=== PATIENT | male | born 1985 | race Caucasian/White ===

== ENCOUNTER 2022-03-25 10:54 | Emergency (ER) | payer MEDICAID, SELFPAY ==
[2022-03-25 11:01] VITALS: BP 131/86; PULSE 50; RESP 16; TEMP 36.7; O2SAT 100; BMI 26.4
[2022-03-25 11:25] VITALS: BP 131/86; PULSE 50; RESP 16; O2SAT 100
--- NOTE | 2022-03-25 11:38 | CT_ITS ---
WS: [id number] CT HEAD TECHNIQUE: Noncontrast CT of the head obtained from the skullbase to the vertex. CLINICAL INFORMATION: pressure, confusion COMPARISON: None. DLP: 873.[address] scans at [facility] use at least one of these dose optimization techniques: automated e xposure control; mA and/or kV adjustment per patient size (includes targeted exams where dose is matc hed to clinical indication); or iterative reconstruction. FINDINGS: No evidence of intracranial hemorrhage or mass effect. Ventricular system and basal cisterns are payne nt No extra-axial fluid collections. No evidence of mass or mass effect. Normal darden-white differenti ation. Paranasal sinuses and mastoid air cells are well aerated. .Normal visualized soft tissues. CT/CT head wo con* [id number] IMPRESSION: 1. No evidence of intracranial hemorrhage or mass effect. 2. Normal darden-white differentiation. 3. No acute intracranial findings.
--- NOTE | 2022-03-25 11:39 | XRR_ITS ---
PROCEDURE INFORMATION: Exam: XR Chest Exam date and time: 03/25/2022 11:52 AM Age: 36 years old Clinical indication: Pain; Angina pectoris; Additional info: Chest pain TECHNIQUE: Imaging protocol: XR of the chest. Views: 1 view. COMPARISON: No relevant prior studies available. FINDINGS: Lungs: No focal airspace disease. Pleural spaces: Unremarkable. No pleural effusion. No pneumothorax. Heart/Mediastinum: Cardiomediastinal silhouette is within normal limits. Bones/joints: Unremarkable. XR/XR chest 1V portable [id number] IMPRESSION: No acute cardiopulmonary abnormality.
--- NOTE | 2022-03-25 11:40 | ECG_ITS ---
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 Measurements Intervals [place] Rate: 46 P: 30 NV: 130 QRS: 44 QRSD: 109 T: 50 QT: 467 QTc: 409 Interpretive Statements SINUS BRADYCARDIA No previous ECG available for comparison Electronically Signed On 03-25-2022 17:36:44 CDT by Padmaja Matthews M.D. [id number]
--- NOTE | 2022-03-25 11:40 | W.ED.GENADLT ---
HPI - General Adult General: Chief complaint: Headache Stated complaint: head Pressure, Confusion Time Seen by Provider: 03/25/22 11:19 Source: patient Mode of arrival: ambulatory Limitations: no limitations History of Present Illness: Patient is a 36-year-old male who presents to ED today with a complaint of intermittent head pressure and feelings of confusion/slowing. He states symptoms of been intermittent over the past 4 days. He denies previous symptoms or episodes. He is not complaining of head pain but just feels a global sense of pressure. He states symptoms seem to be worse in the evenings. He is not having any visual changes. No neurologic deficits. He does not complain of sinus pain/pressure or discharge. No history of allergies. No injury or trauma to his head. He states he checked his blood pressure yesterday secondary to symptoms and states his systolic was 150s. Patient does not complain of shortness of breath or difficulty breathing. He does not have any chest pain. He does state yesterday he felt like I could hear my heart beating but states he checked his pulse and it was in the 60s. Patient does tell me he takes several athletic supplements but recently discontinued them to see if this would help with symptoms. Onset (ago): day(s) Pain Consistency: intermittent Relieving factors: none Exacerbating factors: none Associated symptoms: Reports headache(s) (head pressure); Deny chest pain, dyspnea, malaise, nausea, syncope or vomiting Treatments prior to arrival: none Review of Systems Const: Denies: fever(s), chills, body aches, change in appetite, change in weight, fatigue or malaise Eyes: Denies: change in vision or blurry vision Card: Denies: chest pain, irregular heart rhythm, edema, swelling of feet/ankles, syncope, pre-syncope, dyspnea on exertion, orthopnea, leg pain with exertion or acrocyanosis Resp: Denies: dyspnea GI: Denies: abdominal pain, nausea, vomiting or diarrhea Musc: Denies: neck pain, back pain, extremity pain or joint pain Neuro: Reports: headache(s) (head pressure); Denies: numbness in extremities, weakness in extremities, sensory changes, frequent falls, vertigo, Slurred speech present, seizure-like activity or involuntary movements Physical Exam Const: COMMON NORMALS: no acute distress, average body habitus, patient oriented x3, no limitations, healthy appearing, alert and well nourished ORIENTATION/CONSCIOUSNESS: Yes awake, Yes oriented to person, Yes oriented to place and Yes oriented to time HENMT: COMMON NORMALS: normocephalic, atraumatic and EAC's normal HEAD & SCALP: normocephalic and atraumatic FACE & SINUS: normal facial exam and sinuses nontender EXTERNAL AUDITORY CANAL: EAC's normal Eye: GENERAL EYE: appearance normal, both eyes and all related structures Neck/C-Spine: COMMON NORMALS: full ROM, no lymphadenopathy and no meningeal signs Resp: COMMON NORMALS: normal respiratory effort and clear to auscultation bilaterally AUSCULTATION: clear to auscultation bilaterally Cardio: COMMON NORMALS: regular rhythm RATE: bradycardic RHYTHM: regular rhythm Extremity: COMMON NORMALS: normal to inspection, capillary refill normal, no clubbing, cyanosis or edema, no calf tenderness and no pedal edema GENERAL: Yes normal exam except as noted Neuro: EDUARDO COMA SCALE: document GCS findings Caldwell coma scale eye opening: Spontaneous Eduardo coma scale verbal response: Orientated Eduardo coma scale motor response: Obey commands Caldwell coma scale total score: 15 COMMON NORMALS: patient oriented x3, CN's II-XII intact bilaterally, moves all extremities, no focal motor deficits, no sensory deficits noted and gait normal SENSORIUM/ORIENTATION: Yes alert, Yes oriented to person, Yes oriented to place and Yes oriented to time MENINGEAL SIGNS: Yes no meningeal signs SPEECH: speech normal GAIT: Yes Normal gait present MOTOR EXAM: 5/5 motor strength present throughout Skin: COMMON NORMALS: no rashes or lesions noted GENERAL SKIN EXAM: no rashes or lesions noted Course Vital Signs: Vital signs: Vital Signs Temperature 98.1 F 03/25/22 11:01 Pulse Rate 65 03/25/22 14:16 Respiratory Rate 16 03/25/22 11:25 Blood Pressure 129/78 03/25/22 14:16 Pulse Oximetry 97 03/25/22 14:16 [facility] - General Adult Medical Decision Making Patient's physical exam is unyielding and essentially normal. His vital signs are stable. He does have some baseline bradycardia however patient is very active/fit and this is most likely normal for him. He is normotensive with normal perfusion on physical exam. Patient does not complain of lightheadedness or dizziness. No presyncopal episodes. Blood work here consisting of CBC, CMP, EKG, and trop are all fairly unremarkable. During re-examination patient tells me that he feels normal now . This time I would [facility] and [facility]up if indicated. I do not have any suspicion for anything emergent or life-threatening at this time. Lab Data : 03/25/22 12:26 03/25/22 12:[address] 03/25/22 11:38 IMPRESSION: 1. No evidence of intracranial hemorrhage or mass effect. 2. Normal darden-white differentiation. 3. No acute intracranial findings. Chest X-Ray 03/25/22 11:39 IMPRESSION: No acute cardiopulmonary abnormality. Laboratory Results WBC 4.9 10^3/uL (4.0-10.0) 03/25/22 12: RBC 5.16 10^6/uL (4.1-5.3) 03/25/22 12: Hgb 14.4 g/dL (11.7-16.6) 03/25/22 12: Hct 45.0 % (42.0-52.0) 03/25/22 12: MCV 87.2 fl (80-94) 03/25/22 12: MCH 27.9 pg (28.0-34.0) L 03/25/22 12: MCHC 32.0 g/dL (30.0-36.0) 03/25/22 12: RDW 12.9 % (12.1-15.1) 03/25/22 12: Plt Count 212 10^3/cmm (130-400) 03/25/22 12: MPV 10.9 fL (7.4-10.4) H 03/25/22 12:26 Neut % (Auto) 56.5 % 03/25/22 12: Lymph % (Auto) 31.0 % 03/25/22 12: [place] % (Auto) 8.4 % 03/25/22 12: Eos % (Auto) 3.1 % 03/25/22 12: Baso % (Auto) 0.8 % 03/25/22 12: Neut # (Auto) 2.75 10^3/uL (1.8-7.7) 03/25/22 12:26 Lymph # (Auto) 1.5 10^3/uL (0.8-4.8) 03/25/22 12:26 [place] # (Auto) 0.4 10^3/uL (0.2-0.9) 03/25/22 12: Eos # (Auto) 0.2 10^3/uL (0.0-0.8) 03/25/22 12: Baso # (Auto) 0.0 10^3/uL (0.0-0.1) 03/25/22 12:26 Nucleated RBC % (auto) 0 % 03/25/22 12: Nucleated RBCs # 0.0 /100WBC 03/25/22 12:26 Sodium 136 mmol/L (136-145) 03/25/22 12: Potassium 4.1 mmol/L (3.5-5.1) 03/25/22 12: Chloride 98 mmol/L (98-107) 03/25/22 12: Carbon Dioxide 25 mmol/L (22-29) 03/25/22 12:26 Anion Gap 17.1 (5-19) 03/25/22 12:26 BUN 10 mg/dL (6-20) 03/25/22 12:26 Creatinine 0.8 mg/dL (0.7-1.2) 03/25/22 12:26 GFR Calculation 109.4 mL/min (90-130) 03/25/22 12:26 Glucose 87 mg/dL (65-115) 03/25/22 12: Calculated Osmolality 280 mOsm/kg (285-295) L 03/25/22 12:26 Calcium 9.5 mg/dL (8.5-10.5) 03/25/22 12:26 Total Bilirubin 0.8 mg/dL (0.15-1.2) 03/25/22 12:26 AST 26 U/L (0-40) 03/25/22 12: ALT 29 U/L (0-41) 03/25/22 12:26 Alkaline Phosphatase 52 IU/L (40-130) 03/25/22 12:26 Troponin T Baseline 16 ng/L (0-15) H 03/25/22 12:26 Total Protein 6.8 g/dL (6.6-8.7) 03/25/22 12:26 Albumin 4.5 g/dL (3.5-5.2) 03/25/22 12:26 Globulin 2.3 g/dL (1.3-4.6) 03/25/22 12:26 Discharge Plan Discharge Patient Disposition: Home Clinical Impression: Pressure in head, Normal exam Condition: Stable Discharge Orders: Discharge ED (Routine); Ordered 03/25/22 Ordered By: Bryanna Singh Activity Restrictions/Additional Instructions: As we discussed [facility] symtpoms. I hope you begin to feel better soon. Coding Level of Care Code ED School Bus Operator for Erick Fwd Exam Comprehensive
[2022-03-25 12:59] LABS: Basophils % 0.8 %; Eosinophils # 0.2 10^3/uL (0.0-0.8); Eosinophils % 3.1 %; Hemoglobin 14.4 g/dL (11.7-16.6); Lymphocytes # 1.5 10^3/uL (0.8-4.8); Mean Corpuscular Hemoglobin 27.9 pg (28.0-34.0); Mean Corpuscular Volume 87.2 fl (80-94); Mean Platelet Volume 10.9 fL (7.4-10.4); Monocytes # 0.4 10^3/uL (0.2-0.9); Monocytes % 8.4 %; Neutrophils # 2.75 10^3/uL (1.8-7.7); Neutrophils % 56.5 %; Nucleated Red Blood Cells % 0 %; Platelet Count 212 10^3/cmm (130-400); Red Blood Count 5.16 10^6/uL (4.1-5.3); Red Cell Distribution Width 12.9 % (12.1-15.1); White Blood Count 4.9 10^3/uL (4.0-10.0)
[2022-03-25 13:30] LABS: Troponin(5th) Baseline 16 ng/L (0-15)
[2022-03-25 13:32] LABS: Alanine Aminotransferase 29 U/L (0-41); Albumin Level 4.5 g/dL (3.5-5.2); Alkaline Phosphatase 52 IU/L (40-130); Anion Gap 17.1 (5-19); Aspartate Amino Transferase 26 U/L (0-40); Blood Urea Nitrogen 10 mg/dL (6-20); Calcium 9.5 mg/dL (8.5-10.5); Carbon Dioxide 25 mmol/L (22-29); Chloride 98 mmol/L (98-107); Creatinine Clr Calc Pharmacy 143.8183; Globulin 2.3 g/dL (1.3-4.6); Glomerular Filtration Rate 109.4 mL/min (90-130); Glucose 87 mg/dL (65-115); Osmolality Calculated 280 mOsm/kg (285-295); Potassium 4.1 mmol/L (3.5-5.1); Sodium 136 mmol/L (136-145); Total Bilirubin 0.8 mg/dL (0.15-1.2); Total Protein 6.8 g/dL (6.6-8.7)
[2022-03-25 14:16] VITALS: BP 129/78; PULSE 65; O2SAT 97
== END 2022-03-25 14:18 | disposition home or self-care (01) ==
PROVIDERS: Emergency Provider Physician Assistant
DX: R51.9 Headache, unspecified (principal)
CPT/HCPCS: 36415; 70450; 71045; 80053; 84484; 85025; 93005; 99284

== ENCOUNTER → 2024-06-01 10:29 | Outpatient (BNVA) | payer OTHER, SELFPAY | PROVIDERS: PCP Family Medicine; Visit Provider Physician Assistant | DX: M19.041 Primary osteoarthritis, right hand (principal) | CPT/HCPCS: 73130; 99203 ==